=== PATIENT | female | born 1975 | race Asian ===

== ENCOUNTER 2018-06-23 08:06 | Day surgery (SDC) | payer OTHER ==
[~2018-06-23 08:06] MED LIST: CLINDAMYCIN 900 MG/50 ML D5W IVPB IVPB; DEXAMETHASONE 4 MG/ML 1 ML INJ; GLYCOPYRROLATE 0.4 MG INJ; LIDOCAINE 2% (SDV) 5 ML INJ; NEOSTIGMINE 3 MG/3 ML SYRINGE; PROPOFOL 200 MG INJ; SEVOFLURANE 15 MIN; SOD CHLORIDE 0.9% 1,000 ML IV; SUCCINYLCHOLINE CHLORIDE 100 MG/5 ML SYG IV
[2018-06-23 08:45] LABS: ADD MAN DIFF? NO
[2018-06-23 08:47] LABS: BASOPHIL # 0.1 10^3/ul (0.0-0.1); BASOPHILS % 0.8 % (0.0-2.0); EOSINOPHILS # 0.6 10^3/ul (0.0-0.5); EOSINOPHILS % 8.9 % (0.0-7.0); HEMATOCRIT 41.2 % (37.0-47.0); HEMOGLOBIN 14.4 g/dl (12.0-16.0); LYMPHOCYTES # 2.2 10^3/ul (0.8-2.9); LYMPHOCYTES % 33.6 % (15.0-51.0); MEAN CORPUSCULAR HEMOGLOBIN 31.6 pg (29.0-33.0); MEAN CORPUSCULAR VOLUME 90.4 fl (82.0-101.0); MEAN PLATELET VOLUME 10.4 fl (7.4-10.4); MONOCYTE # 0.5 10^3/ul (0.3-0.9); NEUTROPHIL # 3.2 10^3/ul (1.6-7.5); NEUTROPHILS % 49.4 % (39.0-77.0); PLATELET COUNT 304 10^3/UL (140-415); RED BLOOD COUNT 4.56 10^6/ul (4.20-5.40); RED CELL DISTRIBUTION WIDTH 12.8 % (11.5-14.5)
[2018-06-23 08:47] LABS: WHITE BLOOD COUNT 6.4 10^3/ul (4.8-10.8)
[2018-06-23 09:07] LABS: INR 0.92; PROTIME 12.4 Sec (11.9-14.9)
[2018-06-23 09:09] LABS: ALANINE AMINOTRANSFERASE 22 IU/L (13-69); ALBUMIN 4.1 g/dl (3.3-4.9); ALKALINE PHOSPHATASE 54 IU/L (42-121); ANION GAP 9 (5-13); ASPARTATE AMINO TRANSFERASE 30 IU/L (15-46); BILIRUBIN,INDIRECT 0.7 mg/dl (0-1.1); BILIRUBIN,TOTAL 0.7 mg/dl (0.2-1.3); BLOOD UREA NITROGEN 8 mg/dl (7-20); CALCIUM 8.7 mg/dl (8.4-10.2); CARBON DIOXIDE 24 mmol/L (21-31); CHLORIDE 106 mmol/L (97-110); CREATININE 0.54 mg/dl (0.44-1.00); Estimated GFR > 60 mL/min (>60); GLUCOSE 106 mg/dl (70-220); POTASSIUM 4.3 mmol/L (3.5-5.1); SODIUM 139 mmol/L (135-144); TOTAL PROTEIN 7.5 g/dl (6.1-8.1)
[2018-06-23 09:16] LABS: PARTIAL THROMBOPLASTIN TIME 40.8 Sec (23.0-35.0)
[2018-06-23] MEDS: BUPIVACAINE 0.25%/EPI (MDV) 50 ML VIAL INJ (11:17)
[2018-06-23] MEDS ORDERED: ONDANSETRON 4 MG INJ ×3 (11:54→13:35)
[2018-06-23] MEDS ORDERED: FENTAnyl 50 MCG/ML VIAL (11:54)
[2018-06-23] MEDS ORDERED: KETOROLAC 30 MG INJ IV (13:00)
[2018-06-23] MEDS ORDERED: IBUPROFEN 600 MG TAB PO (13:00)
[2018-06-23] MEDS ORDERED: ONDANSETRON 4 MG INJ IV (13:00)
[2018-06-23] MEDS ORDERED: HYDROCODONE/APAP (5/325) TAB PO (13:00)
[2018-06-23] MEDS ORDERED: HYDROmorphONE 1 MG/5 ML IV SYRINGE IV ×3 (13:30→13:34)
[2018-06-23] MEDS ORDERED: LABETALOL HCL 20MG INJ IV (13:30)
[2018-06-23] MEDS ORDERED: FENTAnyl 50 MCG/ML VIAL IV ×3 (13:30)
[2018-06-23] MEDS ORDERED: OXYCODONE/ACETAMINOPHEN (5/325) TAB PO ×2 (13:30)
[2018-06-23] MEDS: HYDROmorphONE 1 MG/5 ML IV SYRINGE IV (13:41)
[2018-06-23] MEDS: ONDANSETRON 4 MG INJ IV (13:42)
== END 2018-06-23 16:40 | disposition home or self-care (01) ==
LOC: SDS 08:06
DX: D24.1 Benign neoplasm of right breast (principal); N60.11 Diffuse cystic mastopathy of right breast
CPT/HCPCS: 19301; 80053; 85025; 85610; 85730; 88307